=== PATIENT | female | born 1935 ===

== ENCOUNTER 2017-05-21 10:58 | Outpatient (CLI) | payer OTHER ==
[~2017-05-21 10:58] MED LIST: ASPIR 8181 MG; ATORVASTATIN CA40 MG; HYZAAR 100-121 UDTAB; NORVASC5 MG; PNEU16DI2; TENORMIN50 M1; ZETIA10 MG
== END 2017-05-21 11:04 | disposition home or self-care (01) ==
LOC: NUCLEAR 10:58
DX: I69.30 Unspecified sequelae of cerebral infarction (principal); I67.89 Other cerebrovascular disease

== ENCOUNTER 2017-06-27 12:59 | Outpatient (CLI) | payer OTHER | END 2017-06-27 13:10 | disposition home or self-care (01) | LOC: NUCLEAR 12:59 | DX: Z82.62 Family history of osteoporosis (principal); M85.9 Disorder of bone density and structure, unspecified; M81.0 Age-related osteoporosis without current pathological fracture; M81.6 Localized osteoporosis [Lequesne] ==

== ENCOUNTER 2019-02-12 11:09 | Outpatient (CLI) | payer OTHER | END 2019-02-13 06:19 | disposition home or self-care (01) | LOC: SONOGRAMA 11:09 | DX: E04.2 Nontoxic multinodular goiter (principal); E11.9 Type 2 diabetes mellitus without complications ==

== ENCOUNTER 2019-02-12 12:15 | Outpatient (CLI) | payer OTHER | END 2019-02-12 12:20 | disposition home or self-care (01) | LOC: LAB 12:15 | DX: N39.0 Urinary tract infection, site not specified (principal); E11.9 Type 2 diabetes mellitus without complications ==

== ENCOUNTER 2019-02-19 07:45 | Outpatient (CLI) | payer OTHER | END 2019-02-19 07:49 | disposition home or self-care (01) | LOC: SONOGRAMA 07:45 | DX: E04.2 Nontoxic multinodular goiter (principal) ==

== ENCOUNTER 2019-09-29 07:55 | Outpatient (CLI) | payer OTHER | END 2019-09-29 07:59 | disposition home or self-care (01) | LOC: NUCLEAR 07:55 | PROVIDERS: ATTEND Internal Medicine Cardiovascular Disease | DX: I82.403 Acute embolism and thrombosis of unspecified deep veins of lower extremity, bilateral (principal) ==